=== PATIENT | female | born 1960 | race Caucasian/White ===

== ENCOUNTER 2019-07-03 09:42 | Outpatient (CLI) | payer OTHER, SELFPAY ==
--- NOTE | ~2019-07-03 | MM_ITS ---
EXAMINATION: MM screening [facility] BI w rickey HISTORY: Screening mammogram TECHNIQUE: Craniocaudal and mediolateral oblique 3-D tomosynthesis images were obtained and synthetic 2-D images were generated. CAD analysis was submitted and interpreted. COMPARISON: 07/02/2018, 06/26/2017, 06/15/2016 bilateral digital screening mammogram examinations BREAST PARENCHYMAL COMPOSITION: There are scattered areas of fibroglandular density. FINDINGS: There is no evidence of suspicious mass, calcification, or architectural distortion to sugg est malignancy in either breast. There has been no suspicious interval change. IMPRESSION: 1. No mammographic evidence of malignancy. 2. Recommend routine screening mammography in one year. BI-RADS Category 1: Negative Reviewed, dictated and finalized at location A. OR PHP WEB DEVELOPER
--- NOTE | ~2019-07-03 | DEXA_ITS ---
Bone Density Report Name: Joya Pemberton Age: 59 Sex: Female Ethnicity: White Date of : 1960 Indication: osteopenia; asthma or emphysema; hysterectomy; Referring Provider: Amalia Dewey Study: Bone densitometry was performed. Exam Date: July 03, 2019 Accession number: [id number] Bone Density: Region BMD T-score Z-score Classification AP Spine (L1-L4) 0.737 -2.8 -1.6 Osteoporosis Femoral Neck (Left) 0.614 -2.1 -1.0 Osteopenia Total Hip (Left) 0.785 -1.3 -0.5 Osteopenia Total Hip Bilateral Avg 0.793 -1.3 -0.5 Osteopenia Femoral Neck (Right) 0.587 -2.4 -1.2 Osteopenia Total Hip (Right) 0.799 -1.2 -0.4 Osteopenia World Health Organization criteria for BMD impression classify patients as: Normal (T-score at or above -1.0), Osteopenia (T-score between -1.0 and -2.5), or Osteoporosis (T-score at or below -2.5). 10-year Fracture Risk: FRAX not reported because: Some T-score for Spine Total or Hip Total or Femoral Neck at or below -2.5 Previous Exams: Region Exam Age BMD T-score BMD Change BMD Change Date g/cm2 vs Baseline vs Previous AP Spine(L1-L4) 07/03/2019 59 0.737 -2.8 -0.130(-15.0%) -0.127(-14.7%) 06/07/2015 55 0.864 -1.7 -0.003(-0.3%)# -0.040(-4.4%)# 03/14/2011 51 0.904 -1.3 0.037(4.3%)* 0.053(6.3%)* 03/02/2009 49 0.850 -1.8 -0.016(-1.9%) -0.016(-1.9%) 02/19/2007 47 0.867 -1.6 Total Hip(Left) 07/03/2019 59 0.785 -1.3 -0.072(-8.4%)# -0.050(-5.9%)* 06/07/2015 55 0.835 -0.9 -0.022(-2.6%)# -0.019(-2.2%)# 03/14/2011 51 0.854 -0.7 -0.004(-0.4%) -0.017(-1.9%) 03/02/2009 49 0.871 -0.6 0.013(1.6%) 0.013(1.6%) 02/19/2007 47 0.857 -0.7 Total Hip(Right) 07/03/2019 59 0.799 -1.2 -0.056(-6.6%)# -0.021(-2.5%) 06/07/2015 55 0.819 -1.0 -0.036(-4.2%)# -0.039(-4.6%)# 03/14/2011 51 0.858 -0.7 0.003(0.4%) -0.014(-1.6%) 03/02/2009 49 0.872 -0.6 0.017(2.0%) 0.017(2.0%) 02/19/2007 47 0.855 -0.7 *Denotes significance at 95% confidence level, LSC for AP Spine = 0.022 g/cm2, LSC for Total Hip = 0.027 g/cm2 Clinical Information Provided by Patient: Has the following medical conditions: Asthma or Emphysema, Hysterectomy Patient maximum height was 62 Menopause Age: 41 Drinks caffeinated beverages Onset of menses at age 14 Number of children 1 Impression: The patient has osteoporosis, based on the Total Spine T-score. The BMD for the AP Spine(L1-L4) de
== END 2019-07-03 09:43 | disposition home or self-care (01) ==
LOC: ANHIMG 09:47
PROVIDERS: PCP Internal Medicine; Visit Provider Obstetrics & Gynecology
DX: Z12.31 Encounter for screening mammogram for malignant neoplasm of breast (principal); Z13.820 Encounter for screening for osteoporosis; M81.0 Age-related osteoporosis without current pathological fracture; M85.852 Other specified disorders of bone density and structure, left thigh; M85.851 Other specified disorders of bone density and structure, right thigh
CPT/HCPCS: 77063; 77067; 77080

== ENCOUNTER 2020-07-20 08:09 | Outpatient (CLI) | payer OTHER, SELFPAY ==
--- NOTE | ~2020-07-20 | MM_ITS ---
EXAMINATION: MM screening ana [facility] BI w rickey HISTORY: Screening TECHNIQUE: Craniocaudal and mediolateral oblique 3-D tomosynthesis images were obtained and synthetic 2-D images were generated. CAD analysis was submitted and interpreted. COMPARISON: Comparison to multiple prior studies sequentially, with oldest reviewed study dated 11/2015. BREAST PARENCHYMAL COMPOSITION: There are scattered areas of fibroglandular density. FINDINGS: There is no evidence of suspicious mass, calcification, or architectural distortion to sugg est malignancy in either breast. There has been no suspicious interval change. IMPRESSION: 1. No mammographic evidence of malignancy. 2. Recommend routine screening mammography in one year. BI-RADS Category 1: Negative Reviewed, dictated and finalized at location A. ROOFER
== END 2020-07-20 08:10 | disposition home or self-care (01) ==
LOC: ANHIMG 08:12
PROVIDERS: PCP Internal Medicine; Visit Provider Obstetrics & Gynecology
DX: Z12.31 Encounter for screening mammogram for malignant neoplasm of breast (principal)
CPT/HCPCS: 77063; 77067

== ENCOUNTER 2021-07-27 09:03 | Outpatient (CLI) | payer OTHER, SELFPAY ==
--- NOTE | ~2021-07-27 | MM_ITS ---
EXAMINATION: MM screening ana [facility] BI w rickey HISTORY: Screening TECHNIQUE: Craniocaudal and mediolateral oblique 3-D tomosynthesis images were obtained and synthetic 2-D images were generated. CAD analysis was submitted and interpreted. COMPARISON: Comparison to multiple prior studies sequentially, with oldest reviewed study dated 06/15. BREAST PARENCHYMAL COMPOSITION: There are scattered areas of fibroglandular density. FINDINGS: There is no evidence of suspicious mass, calcification, or architectural distortion to sugg est malignancy in either breast. There has been no suspicious interval change. IMPRESSION: 1. No mammographic evidence of malignancy. 2. Recommend routine screening mammography in one year. BI-RADS Category 1: Negative Reviewed, dictated and finalized at location A. ION AGENT
== END 2021-07-27 09:04 | disposition home or self-care (01) ==
PROVIDERS: PCP Internal Medicine; Visit Provider Obstetrics & Gynecology
DX: Z12.31 Encounter for screening mammogram for malignant neoplasm of breast (principal)
CPT/HCPCS: 77063; 77067

== ENCOUNTER 2022-02-06 08:28 | Emergency (ER) | payer OTHER, SELFPAY ==
[2022-02-06 08:39] VITALS: BP 120/101; PULSE 79; RESP 16; TEMP 37.2; O2SAT 100
--- NOTE | 2022-02-06 09:01 | ED.SKABFB ---
HPI - Skin/Abscess/Foreign Bdy General Chief complaint: Skin/Abscess/Foreign Body Stated complaint: red spots on body Time Seen by Provider: 02/06/22 09:01 Source: patient and RN notes reviewed Mode of arrival: ambulatory Limitations: no limitations History of Present Illness HPI narrative: 62-year-old female presents concern for acute rash. She reports she started getting spots last Sunday and on her shoulder that were very itchy and, burning when her clothes touch them. She reports since then she has had papules popping up on her abdomen, groin, legs, back. She reports they are very itchy. She denies swollen lips, swollen tongue, trouble breathing. She denies viral symptoms such as fever, body aches, chills, joint pain, upper respiratory infection. She reports no one else in her house has a similar rash. She denies any contact to the sampson, plants. She reports she has not been exposed to anyone with rash. She denies any chance of bedbugs. She reports history of sensitive skin. She denies any new personal care or home care products, any new medications. MD complaint: rash Related Data Allergies Allergy/AdvReac Type Severity Reaction Status Date / Time No Known Allergies Allergy Verified 02/06/22 08:38 Review of Systems Review of Systems: CONSTITUTIONAL: Denies malaise, chills, sweats, or fever. EYES: Denies redness, or discharge. ENT: Denies rhinorrhea, congestion, swollen lips, swollen tongue CARDIOVASCULAR: Denies chest pain, palpitations, or edema. RESPIRATORY: Denies cough or dyspnea. GASTROINTESTINAL: Denies abdominal pain, nausea, vomiting SKIN: Reports itchy rash MUSCULOSKELETAL: Denies joint pain or myalgia. NEUROLOGIC: Denies headache. All systems reviewed & are unremarkable except as noted in HPI and below PMFSH Past Medical History Medical History Allergies Chicken pox Heart murmur History of measles, mumps, or rubella History of shingles Mild mitral valve prolapse Surgical History Surgical History H/O: hysterectomy 2002 Family History Family History Father Hypertension Family history of transient ischemic attacks Malignant neoplasm of prostate Family history of heart disease in male family member before age 55, Onset Age: 65 Aortic aneurysm Mother Family history of eczema Family history of allergic disorder Cataract Son Depression ADD (attention deficit disorder) OCD (obsessive compulsive disorder) Social History Social History (Updated 07/27/21 @ 08:03 by Penelope Danielle MA) Smoking status: Never smoker Alcohol intake: never Substance use: never Additional occupation/education comments: [employer] Gender identity (if verbalized by the patient): Female Comments At time of signature, agree with nursing past medical, surgical, social and family history. There is no relevant family history pertinent to the presenting complaint Exam Narrative: GENERAL: Well-appearing, well-nourished, and in no acute distress. HEAD: Normocephalic, atraumatic. EYES: PERRLA, conjunctivae clear, and EOMI. ENT: Mucous membranes moist. Oropharynx without edema, erythema or lesions. NECK: Supple. No lymphadenopathy CHEST: Clear to auscultation. No respiratory distress. HEART: Regular rate and rhythm. SKIN: Warm, dry. Cluster of erythematous papules noted to the right shoulder, discrete scattered papules on the back, abdomen, legs NEURO: Alert and oriented x3. PSYCH: Normal mood and affect Course Course Emergency Course: Patient is aware of diagnosis, understands and agrees to treatment plan. Anticipatory guidance given. Patient agrees to follow-up as directed and is aware of reasons to seek care at the emergency department. Portions of this record may have been created with voice recognition software Lev
== END 2022-02-06 09:19 | disposition home or self-care (01) ==
PROVIDERS: Emergency Provider Nurse Practitioner; PCP Internal Medicine
DX: R21 Rash and other nonspecific skin eruption (principal); R01.1 Cardiac murmur, unspecified; I34.1 Nonrheumatic mitral (valve) prolapse
CPT/HCPCS: 99213; G0463

== ENCOUNTER 2022-08-22 10:45 | Outpatient (CLI) | payer OTHER, SELFPAY ==
--- NOTE | 2022-08-25 12:39 | WPDHOLTEREM ---
Holter/Event Monitor Holter/Event Monitor Date of procedure: 08/22/22 Holter/Event Procedure: 48 Hr Holter Monitor Indications: Palpitations, edema Conclusion: 1. 48 hour holter monitor on 08/22/22. 2. Predominant rhythm is sinus rhythm. HR range 44-133 bpm; average HR 77 bpm. 3. There are 3,569 premature supraventricular complexes, 30 supraventricular couplets, 614 supraventricular trigeminy. There are 6 episodes of atrial tachycardia, fastest at 145 bpm and longest lasting 5 beats. 4. There are 19 premature ventricular complexes. There is 1 episode of ventricular tachycardia at 132 bpm lasting 7 beats at 14:19. 5. No sinoatrial or atrioventricular blocks. No significant pauses greater than 2 seconds. 6. Patient reports symptoms of skipped beats, flutter which demonstrate sinus rhythm, HR range 63-120 bpm and 2 episodes with PAC's.
== END 2022-08-22 10:46 | disposition home or self-care (01) ==
PROVIDERS: PCP Internal Medicine; Visit Provider Clinical Nurse Specialist
DX: R00.2 Palpitations (principal); I34.1 Nonrheumatic mitral (valve) prolapse
CPT/HCPCS: 93225; 93226

== ENCOUNTER 2022-09-28 07:19 | Outpatient (CLI) | payer OTHER, SELFPAY ==
--- NOTE | ~2022-09-28 | MM_ITS ---
EXAMINATION: MM screening [facility] BI w rickey HISTORY: Screening mammogram TECHNIQUE: Craniocaudal and mediolateral oblique 3-D tomosynthesis images were obtained and synthetic 2-D images were generated. CAD analysis was submitted and interpreted. COMPARISON: 07/27/2021, 07/20/2020, 07/03/2019 BREAST PARENCHYMAL COMPOSITION: There are scattered areas of fibroglandular density. FINDINGS: No suspicious mass, calcification, or architectural distortion are identified in either omero ast to suggest malignancy. There has been no suspicious interval change. IMPRESSION: 1. No mammographic evidence of malignancy. 2. Recommend routine screening mammography in one year. BI-RADS Category 1: Negative Reviewed, dictated and finalized at location A.
== END 2022-09-28 07:20 | disposition home or self-care (01) ==
LOC: ANHIMG 07:21
PROVIDERS: PCP Internal Medicine; Visit Provider Obstetrics & Gynecology
DX: Z12.31 Encounter for screening mammogram for malignant neoplasm of breast (principal)
CPT/HCPCS: 77063; 77067

== ENCOUNTER 2023-11-27 13:58 | Outpatient (CLI) | payer OTHER, SELFPAY ==
--- NOTE | ~2023-11-27 | MM_ITS ---
EXAMINATION: MM screening ana laura BI w rickey HISTORY: Screening TECHNIQUE: Craniocaudal and mediolateral oblique 3-D tomosynthesis images were obtained and synthetic 2-D images were generated. CAD analysis was submitted and interpreted. COMPARISON: Comparison to multiple prior studies sequentially, with oldest reviewed study dated 10/2017. BREAST PARENCHYMAL COMPOSITION: Dense: The breasts are heterogeneously dense, which may obscure small masses FINDINGS: There is no evidence of suspicious mass, calcification, or architectural distortion to sugg est malignancy in either breast. There has been no suspicious interval change. IMPRESSION: 1. No mammographic evidence of malignancy. 2. Recommend routine screening mammography in one year. BI-RADS Category 1: Negative Reviewed, dictated and finalized at location B.
--- NOTE | ~2023-11-27 | DEXA_ITS ---
Bone Density Report Name: NEAL MASTERS Age: 63 Sex: Female Ethnicity: White Date of : 1960 Indication: postmenopausal; screening for osteoporosis; history of glucocorticoids; asthma or emphysema; hysterectomy; Referring Provider: LIOR CLAY Study: Bone densitometry was performed. Exam Date: November 27, 2023 Accession number: [id number] Bone Density: Region BMD T-score Z-score Classification AP Spine(L1-L4) 0.687 -3.3 -1.7 Osteoporosis Femoral Neck (Left) 0.579 -2.4 -1.1 Osteopenia Total Hip (Left) 0.770 -1.4 -0.4 Osteopenia Femoral Neck (Right) 0.563 -2.6 -1.2 Osteoporosis Total Hip (Right) 0.771 -1.4 -0.4 Osteopenia Total Hip Mean 0.771 -1.4 -0.4 Osteopenia World Health Organization criteria for BMD impression classify patients as: Normal (T-score at or above -1.0), Osteopenia (T-score between -1.0 and -2.5), or Osteoporosis (T-score at or below -2.5). 10-year Fracture Risk: FRAX not reported because: Some T-score for Spine Total or Hip Total or Femoral Neck at or below -2.5 Clinical Information Provided by Patient: Has taken Glucocorticoids Has the following medical conditions: Asthma or Emphysema, Hysterectomy Patient maximum height was 62 No regular weight bearing exercise Does not regularly consume dairy products Drinks caffeinated beverages Onset of menses at age 14 Number of children 1 Impression: The patient has osteoporosis, based on the Total Spine T-score. The patient has risk factors, including: history of glucocorticoid therapy. Discussion: INCREASED RISK OF FRACTURE. BONE DENSITY IS UNDESIRABLY LOW AT ONE OR MORE SKELETAL SITES, CONSISTENT WITH POSTMENOPAUSAL OSTEOPOROSIS. This patient's lowest T-score meets the World Health Organization's (WHO) criteria for osteoporosis at one or more sites (T-score -2.5 or below). In untreated patients, the risk of osteoporotic fracture increases approximately two-fold for each 1.0 SD decrease in T-score. Low bone density is not the only risk factor for fracture; also consider factors such as patient's age, frailty or poor health, risk of falling, risk of injury, previous osteoporotic fracture, family history of osteoporosis, cigarette smoking, low body weight, etc. Not everyone with low bone mineral density has osteoporosis; osteomalacia and other metabolic bone disorders should also be considered. Patients who have osteoporosis should be evaluated for specific diseases and conditions (secondary causes) that may cause or contribute to bone loss. The [place] [employer]ocrinologists (AACE) and National Osteoporosis Foundation (NOF) recommend pharmacologic intervention for all postmenopausal women whose T-score is in this range. The patient should follow a healthful lifestyle (good nutrition with adequate calcium and valarie
== END 2023-11-27 13:59 | disposition home or self-care (01) ==
PROVIDERS: PCP Internal Medicine; Visit Provider Obstetrics & Gynecology
DX: Z12.31 Encounter for screening mammogram for malignant neoplasm of breast (principal); M85.89 Other specified disorders of bone density and structure, multiple sites
CPT/HCPCS: 77063; 77067; 77080